=== PATIENT | male | born 1945 | race Caucasian/White ===

== ENCOUNTER 2016-08-28 11:24 | Outpatient (CLI) | payer MEDICARE, OTHER ==
[2016-01-26 15:03] VITALS: BP 127/74
== END 2016-08-28 11:25 ==
LOC: CARD 11:24
PROVIDERS: ATTEND Internal Medicine Cardiovascular Disease
DX: I25.10 Atherosclerotic heart disease of native coronary artery without angina pectoris (principal); E78.00 Pure hypercholesterolemia, unspecified; I10 Essential (primary) hypertension
CPT/HCPCS: G0463

== ENCOUNTER 2017-01-17 22:06 | Emergency (ER) | payer MEDICARE, OTHER ==
[2017-01-17] MEDS: DIPH,PERTUSS(ACELL),TET VAC/PF 0.5 ML DISP.SYRIN IM ONE (23:15)
[2017-01-17] MEDS: AMOXICILLIN/POT 875/125 1 EACH PO ONE (23:20)
[2017-01-17] MEDS: MUPIROCIN 2% OINT 22GM TUBE TP ONE (23:20)
--- NOTE | 2017-01-17 23:21 | ED Physician Documentation ---
General Adult - HISTORIAN Historian: patient - HPI Stated Complaint: puncture wound R hand w catfish fin Chief Complaint: General Adult Onset: minutes Further Comments: yes (Pt is a 71 yo male who punctured his R hand with a catfish fin "in dirty water." Pt has a small amount of swelling and redness at the site on his R palm. Pt pulled the fin out right away and irrigated his hand.) - ROS CONST: no problems EYES/ENT: none CVS/RESP: none GI/: none MS/SKIN/LYMPH: other (puncture wound R hand) - PAST HX Past History: other (AMI w stent, COPD, HTN) Allergies/Adverse Reactions: Allergies Allergy/AdvReac Type Severity Reaction Status Date / Time aspirin AdvReac Unknown Vomiting Verified 01/26/16 15:03 Home Medications: Ambulatory Orders Medication Instructions Recorded Atenolol [Tenormin] 1 tab PO D 01/04/16 Citalopram Hydrobromide 1 tab PO D 01/04/16 [Citalopram HBr] Clopidogrel Bisulfate [Clopidogrel] 1 tab PO D 01/04/16 Folic Acid [Folvite] 1 tab PO D 01/04/16 Hydrocodone/Acetaminophen 1 tab PO DIRECTED 01/04/16 [Hydrocodon-Acetaminophen 5-325] Lisinopril/Hydrochlorothiazide 1 tab PO D 01/04/16 [Prinizide] Pantoprazole Sodium [Protonix] 1 tab PO D 01/04/16 Prednisone [Prednisone] 1 tab PO D 01/04/16 Simvastatin [Simvastatin] 1 tab PO D 01/04/16 Tramadol HCl [Ultram] 1 tab PO DIRECTED 01/04/16 Methotrexate Sodium [Rheumatrex] 2.5 mg PO WEEK 01/17/17 - SOCIAL HX Smoking History: cigarettes - FAMILY HX Family History: No - VITAL SIGNS Vital Signs: Vital Signs Temp Pulse Resp BP Pulse Ox 127/74 01/26/16 14:00 - REVIEWED ASSESSMENTS Nursing Assessment Reviewed: Yes Vitals Reviewed: Yes Progress - Progress Progress: Tdap 0.5 ml IM Augmentin (875/125) 1 tab po in ER. Rx Mupirocin 2% topical ointment. Apply to affected area twice daily for 7 days. 1st dose in ER Rx Augmentin (500/125). Take one every 12 hrs for 7 days. ED Results Lab/Radiology - Orders Orders: ED Orders Category Date Time Status Amoxicillin/Potassium Clav [Augmentin 875Mg/125Mg] Med 01/17/17 22:46 Discontinued 1 each PO NOW ONE Diph,Pertuss(Acell),Tet Vac/Pf [Adacel] Med 01/17/17 22:41 Discontinued 0.5 ml IM .ONCE ONE Mupirocin [Bactroban] Med 01/17/17 22:46 Discontinued 1 appl TP NOW ONE General Adult Physical Exam - PHYSICAL EXAM GENERAL APPEARANCE: mild distress NECK: normal inspection, supple RESPIRATORY: no resp distress BACK: normal inspection SKIN: other (puncture wound palm of R hand with redness and mild swelling; no foreign body evident) EXTREMITIES: other (puncture wound palm of R hand with redness and mild swelling ; no foreign body evident) NEURO: oriented X3, motor nml, sensation nml Discharge Clincal Impression: puncture wound L hand Referrals: Elsi Ruffin, [employer] [Primary Care Provider] - Home Medications: Ambulatory Orders Atenolol [Tenormin] 1 tab PO D 01/04/16 Citalopram Hydrobromide [Citalopram HBr] 1 tab PO D 01/04/16 Clopidogrel Bisulfate [Clopidogrel] 1 tab PO D 01/04/16 Folic Acid [Folvite] 1 tab PO D 01/04/16 Hydrocodone/Acetaminophen [Hydrocodon-Acetaminophen 5-325] 1 tab PO DIRECTED 01/04/16 Lisinopril/Hydrochlorothiazide [Prinizide] 1 tab PO D 01/04/16 Pantoprazole Sodium [Protonix] 1 tab PO D 01/04/16 Prednisone [Prednisone] 1 tab PO D 01/04/16 Simvastatin [Simvastatin] 1 tab PO D 01/04/16 Tramadol HCl [Ultram] 1 tab PO DIRECTED 01/04/16 Methotrexate Sodium [Rheumatrex] 2.5 mg PO WEEK 01/17/17 Condition: Good Disposition: 01 HOME, SELF-CARE Decision to Admit: NO Decision Time: 00:48
[2017-01-18 00:44] VITALS: BP 155/58
== END 2017-01-17 23:30 | disposition home or self-care (01) ==
LOC: ED 22:06
DX: S61.449A Puncture wound with foreign body of unspecified hand, initial encounter (principal); X58.XXXA Exposure to other specified factors, initial encounter; Y93.9 Activity, unspecified; Y99.9 Unspecified external cause status
CPT/HCPCS: 90715; 99283

== ENCOUNTER 2017-08-27 12:08 | Outpatient (CLI) | payer MEDICARE, OTHER ==
[2017-01-18 00:44] VITALS: BP 155/58
== END 2017-08-27 12:10 ==
LOC: CARD 12:08
PROVIDERS: ATTEND Nurse Practitioner
DX: I25.10 Atherosclerotic heart disease of native coronary artery without angina pectoris (principal); E78.00 Pure hypercholesterolemia, unspecified; I10 Essential (primary) hypertension; E10.9 Type 1 diabetes mellitus without complications
CPT/HCPCS: G0463